=== PATIENT | female | born 1955 | race Caucasian/White ===

== ENCOUNTER 2019-04-23 11:43 | Emergency (ER) | payer BC, OTHER ==
[~2019-04-23] VITALS: Ht 167.7 cm; Wt 66.6 kg
[2019-04-23 12:14] LABS: BASOPHILS % (AUTO) 1 % (0-10); EOSINOPHILS % (AUTO) 3 % (0-10); HEMATOCRIT 39 % (35-52); HEMOGLOBIN 12.1 G/DL (11.5-16.0); LYMPHOCYTES # (AUTO) 3.1 X 10^3 (1.0-4.0); LYMPHOCYTES % (AUTO) 24 % (12-44); MEAN CORPUSCULAR HEMOGLOBIN 21 PG (25-34); MEAN CORPUSCULAR HGB CONC 31 G/DL (32-36); MEAN CORPUSCULAR VOLUME 69 FL (80-99); MEAN PLATELET VOLUME 10.1 FL (7.4-10.4); MONOCYTES % (AUTO) 7 % (0-12); NEUTROPHILS # (AUTO) 8.6 X 10^3 (1.8-7.8); NEUTROPHILS % (AUTO) 66 % (42-75); PLATELET COUNT 363 10^3/uL (130-400); RED CELL DISTRIBUTION WIDTH 14.6 % (10.0-14.5)
[2019-04-23 12:15] LABS: BASOPHILS # (AUTO) 0.1 10^3/uL (0.0-0.1); EOSINOPHILS # (AUTO) 0.3 10^3/uL (0.0-0.3); MONOCYTES # (AUTO) 0.9 X 10^3 (0.0-1.0)
[2019-04-23 12:17] LABS: PROTHROMBIN TIME PATIENT 13.5 SEC (12.2-14.7)
[2019-04-23 12:25] LABS: ALANINE AMINOTRANSFERASE 17 U/L (0-55); ALBUMIN 3.9 GM/DL (3.2-4.5); ALKALINE PHOSPHATASE 64 U/L (40-136); BILIRUBIN,TOTAL 0.4 MG/DL (0.1-1.0); BUN/CREATININE RATIO 15; CALCIUM 8.9 MG/DL (8.5-10.1); CARBON DIOXIDE 22 MMOL/L (21-32); CHLORIDE 101 MMOL/L (98-107); CREATININE SERUM 0.71 MG/DL (0.60-1.30); GFR ESTIMATED > 60; GLUCOSE 121 MG/DL (70-105); LIPASE 19 U/L (8-78); POTASSIUM 4.7 MMOL/L (3.6-5.0); SODIUM 137 MMOL/L (135-145); TOTAL PROTEIN 6.8 GM/DL (6.4-8.2)
[2019-04-23 13:13] LABS: BACTERIA,URINE FEW /HPF; BILIRUBIN,URINE NEGATIVE (NEGATIVE); CLARITY,URINE CLEAR; COLOR,URINE YELLOW; GLUCOSE, URINE (UA) NEGATIVE (NEGATIVE); KETONES,URINE NEGATIVE (NEGATIVE); LEUKOCYTE ESTERASE ,URINE TRACE (NEGATIVE); NITRITE,URINE NEGATIVE (NEGATIVE); PROTEIN,URINE NEGATIVE (NEGATIVE); RBC,URINE 0-2 /HPF; SQUAMOUS EPITHELIAL CELL,UR 25-50 /HPF
[2019-04-23] MEDS ORDERED: KETOROLAC 30 MG/ML VIAL IVP STA (13:24)
--- NOTE | 2019-04-23 13:30 | ED Abdominal Pain ---
General Chief Complaint: Abdominal/GI Problems Stated Complaint: VOMITING; DIARRHEA Nursing Triage Note: Patient c/o vomiting, diarrhea with blood clots in her stool for the past 2 days. She reports that she went to [employer] a tasting event and got sick shortly after that. She has been unable to eat or drink anything for the past 2 days and continues to have diarrhea. Sepsis Screen: No Definite Risk Source of Information: Patient History of Present Illness Date Seen by Provider: Apr 23, 2019 Time Seen by Provider: 13:04 Initial Comments 63-year-old female presenting with left flank pain that has been going on since Monday. She had gone to an event called [employer] Monday night. She started having vomiting and diarrhea when she got home from that event. She has had left flank pain and noticed that she was passing clots of blood when she goes to the bathroom. She says that she has not really eaten since this weekend because of being afraid of causing more pain. She has not had any vomiting since Monday. She has just tried crackers and Activia yogurt. She did try some cereal today. Right before she passes the blood clots she did SEVERE cramping pain on the left lower quadrant that radiates across her belly. She denies having symptoms like this before. She has had a colonoscopy approximately 5 years ago that was all clear. She states that her mother had polyps previously. Allergies and Home Medications Allergies Coded Allergies: No Known Drug Allergies (Unverified , 04/23/19) Home Medications Dicyclomine HCl 20 Mg Tablet, 20 MG PO Q6H PRN for ABDOMINAL PAIN Prescribed by: RUFINA PEDRAZA on 04/23/19 1503 Levofloxacin 500 Mg Tablet, 500 MG PO DAILY Prescribed by: RUFINA PEDRAZA on 04/23/19 1503 Patient Home Medication List Home Medication List Reviewed: Yes Review of Systems Review of Systems Constitutional: No chills, No fever; malaise EENTM: No Symptoms Reported Respiratory: No Symptoms Reported Cardiovascular: No Symptoms Reported Gastrointestinal: See HPI Genitourinary: No Symptoms Reported Musculoskeletal: no symptoms reported Skin: no symptoms reported Psychiatric/Neurological: No Symptoms Reported Endocrine: No Symptoms Reported Past Sitigad-Sgcyoi-Myzqkg Hx Past Med/Social Hx: Reviewed Nursing Past Med/Soc Hx Patient Social History Alcohol Use: Occasionally Uses Recreational Drug Use: No Smoking Status: Never a Smoker 2nd Hand Smoke Exposure: No Recent Foreign Travel: No Contact w/Someone Who Travel: No Recent Infectious Disease Expo: No Recent Hopitalizations: No Physical Abuse: No Sexual Abuse: No Mistreated: No Fear: No Seasonal Allergies Seasonal Allergies: No Past Medical History Surgeries: Yes Tubal Ligation Respiratory: No Cardiac: Yes Hypertension Neurological: No 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 oz. kg; 23.00 BMI Method: General Appearance: WD/WN, no apparent distress HEENT: PERRL/EOMI, pharynx normal Neck: non-tender, full range of motion, supple, normal inspection Respiratory: chest non-tender, lungs clear, normal breath sounds Cardiovascular: normal peripheral pulses, regular rate, rhythm Gastrointestinal: normal bowel sounds, soft, no pulsatile mass, guarding (left lower quadrant); No rebound; tenderness (left lower quadrant) Extremities: normal range of motion, non-tender, normal capillary refill Neurologic/Psychiatric: alert, normal mood/affect, oriented x 3 Skin: normal color, warm/dry Progress/Results/Core Measures Results/Orders Lab Results Laboratory Tests Test 04/23/19 11:55 04/23/19 13:00 Range/Units White Blood Count 13.0 H 4.3-11.0 10^3/uL Red Blood Count 5.66 4.35-5.85 10^6/uL Hemoglobin 12.1 11.5-16.0 G/DL Hematocrit 39 35-52 % Mean Corpuscular Volume 69 L 80-99 FL Mean Corpuscular Hemoglobin 21 L 25-34 PG Mean Corpuscular Hemoglobin Concent 31 L 32-36 G/DL Red Cell Distribution Width 14.6 H 10.0-14.5 % Platelet Count 363 130-400 10^3/uL Mean Platelet Volume 10.1 7.4-10.4 FL Neutrophils (%) (Auto) 66 42-75 % Lymphocytes (%) (Auto) 24 12-44 % Monocytes (%) (Auto) 7 0-12 % Eosinophils (%) (Auto) 3 0-10 % Basophils (%) (Auto) 1 0-10 % Neutrophils # (Auto) 8.6 H 1.8-7.8 X 10^3 Lymphocytes # (Auto) 3.1 1.0-4.0 X 10^3 Monocytes # (Auto) 0.9 0.0-1.0 X 10^3 Eosinophils # (Auto) 0.3 0.0-0.3 10^3/uL Basophils # (Auto) 0.1 0.0-0.1 10^3/uL Prothrombin Time 13.5 12.2-14.7 SEC INR Comment 1.0 0.8-1.4 Activated Partial Thromboplast Time 28 24-35 SEC Sodium Level 137 135-145 MMOL/L Potassium Level 4.7 3.6-5.0 MMOL/L Chloride Level 101 98-107 MMOL/L Carbon Dioxide Level 22 21-32 MMOL/L Anion Gap 14 5-14 MMOL/L Blood Urea Nitrogen 11 7-18 MG/DL Creatinine 0.71 0.60-1.30 MG/DL Estimat Glomerular Filtration Rate > 60 BUN/Creatinine Ratio 15 Glucose Level 121 H 70-105 MG/DL Calcium Level 8.9 8.5-10.1 MG/DL Corrected Calcium 9.0 8.5-10.1 MG/DL Total Bilirubin 0.4 0.1-1.0 MG/DL Aspartate Amino Transf (AST/SGOT) 24 5-34 U/L Alanine Aminotransferase (ALT/SGPT) 17 0-55 U/L Alkaline Phosphatase 64 40-136 U/L Total Protein 6.8 6.4-8.2 GM/DL Albumin 3.9 3.2-4.5 GM/DL Lipase 19 8-78 U/L Urine Color YELLOW Urine Clarity CLEAR Urine pH 6.0 5-9 Urine Specific [place] <1.005 1.016-1.022 Urine Protein NEGATIVE NEGATIVE Urine Glucose (UA) NEGATIVE NEGATIVE Urine Ketones NEGATIVE NEGATIVE Urine Nitrite NEGATIVE NEGATIVE Urine Bilirubin NEGATIVE NEGATIVE Urine Urobilinogen 0.2 NORMAL MG/DL Urine Leukocyte Esterase TRACE NEGATIVE Urine RBC (Auto) 2+ H NEGATIVE Urine RBC 0-2 /HPF Urine WBC 2-5 /HPF Urine Squamous Epithelial Cells 25-50 H /HPF Urine Crystals NONE /LPF Urine Bacteria FEW H /HPF Urine Casts NONE /LPF Urine Mucus NEGATIVE /LPF Urine Culture Indicated NO My Orders Orders - RUFINA PEDRAZA MD Comprehensive Metabolic Panel (04/23/19 12:01) Lipase (04/23/19 12:01) Ua Culture If Indicated (04/23/19 12:01) Ed Iv/Invasive Line Start (04/23/19 12:01) Cbc With Automated Diff (04/23/19 12:01) Protime With Inr (04/23/19 12:01) Partial Thromboplastin Time (04/23/19 12:01) Ketorolac Injection (Toradol Injection) (04/23/19 13:24) Ct Abdomen/Pelvis W (04/23/19 13:24) Iohexol Injection (Omnipaque 350 Mg/Ml 1 (04/23/19 13:45) Received Contrast (Hold Metformin- Contr (04/23/19 13:45) Sodium Chloride Flush (Catheter Flush Sy (04/23/19 13:45) Ns (Ivpb) (Sodium Chloride 0.9% Ivpb Bag (04/23/19 13:45) Levofloxacin 500 Mg/100 Ml Iv (Levaquin (04/23/19 14:28) Medications Given in ED Current Medications Medications Dose Ordered Sig/[place] Route Start Time Stop Time Status Last Admin Dose Admin Iohexol 100 ml ONCE ONCE IV 04/23/19 13:45 04/23/19 13:46 DC 04/23/19 14:02 100 ML Sodium Chloride 10 ml NEEDED PRN IV 04/23/19 13:45 04/23/19 15:54 DC 04/23/19 14:02 10 ML Sodium Chloride 100 ml ONCE ONCE IV 04/23/19 13:45 04/23/19 13:46 DC 04/23/19 14:02 80 ML Vital Signs/I&O 04/23/19 04/23/19 11:50 15:54 Temp 36.9 37.1 Pulse 62 62 Resp 16 16 B/P (MAP) 163/71 (101) 138/59 (101) Pulse Ox 99 100 O2 Delivery Room Air Blood Pressure Mean: 101 POS Progress Progress Note #1: Progress Note Labs show mild elevation of her white blood cell count to 13,000. She has normal chemistry other than a mild elevation of her glucose. With her pain in the left lower quadrant we will obtain a CT scan to evaluate for diverticulitis versus colitis versus other pathology that might be causing her symptoms. Try toradol for pain. Progress Note #2: Progress Note Patient reports improvement with treatment here in the ED. Her CT scan showed evidence of colitis with some diverticular disease. The radiologist's report stated that it appeared more consistent with colitis and diverticulitis. Will treat with Levaquin for the colitis picture. Counseled on follow-up and return precautions. Advised that she likely will still need a colonoscopy to further evaluate her colon in the diverticular disease once a inflammatory process of infection has calmed down. Based on recommendations from up-to-date for infectious colitis Will treat with a 5 day course of Levaquin. I'll give a IV dose of Levaquin here to kick start her treatment process. Diagnostic Imaging Diagonstic Imaging: CT Plain Films/CT/US/NM/MRI: abdomen, pelvis Comments NAME: [facility] REC#: [id number] PT STATUS: REG ER : 1955 PHYSICIAN: RUFINA PEDRAZA MD ADMIT DATE: 04/23/19/ER FS Draft POSDate of Exam:04/23/19 CT ABDOMEN/PELVIS W PROCEDURE: CT abdomen and pelvis with contrast. TECHNIQUE: Multiple contiguous axial images were obtained through the abdomen and pelvis after administration of intravenous contrast. Auto Exposure Controls were utilized during the CT exam to meet ALARA standards for radiation dose reduction. INDICATION: Abdominal pain and vomiting for two days. COMPARISON: No prior examinations are available for comparison. FINDINGS: The heart size is normal. The lung bases are clear. The liver is normal in size. There is a cyst in the right lobe of the liver. There is no biliary ductal dilatation. The gallbladder is normal. Spleen is normal. Pancreas and adrenal glands are unremarkable. Kidneys are normal in appearance. There is diffuse mucosal thickening throughout the descending colon extending to the upper sigmoid colon. There is diverticular disease. There is a trace amount of free fluid in the left paracolic gutter. There is an enlarged fibroid uterus. Bladder is normal. There are mild degenerative changes in the spine. IMPRESSION: Diffuse mucosal thickening throughout the descending colon with surrounding inflammatory change and trace free fluid in the left paracolic gutter. While there is a background of diverticular disease, this most likely reflects colitis, although an atypical diverticulitis is also consideration. The etiology of the colitis is most likely infectious, although inflammatory and/or ischemic colitis are also considerations. There is no evidence of abscess or bruce perforation. Enlarged fibroid uterus. Trace amount of free pelvic fluid. Benign hepatic cyst. Dictated on workstation # [id number] Dict: 04/23/19 1417 Trans: 04/23/[address] [facility] [id number] Interpreted by: FADY BISHOP MD Electronically signed by: Departure Impression Primary Impression: Colitis presumed to be due to infection Additional Impression: Diverticulitis of sigmoid colon Disposition: HOME, SELF-CARE Condition: Stable Departure-Patient Inst. Decision time for Depature: 15:00 Referrals: IZZY JIANG DO (PCP/Family) Primary Care Physician Patient Instructions: Colitis (DC) Add. Discharge Instructions: Take antibiotics until gone. Follow a liquid diet for 24 hours then advance to bland then regular diet as you tolerate it. Use the Bentyl (Dicyclomine) to help with cramping and abdominal pain. Return or seek medical care for severe pain that worsens, fever over 101 F or uncontrolled vomiting. All discharge instructions reviewed with patient and/or family. Voiced unders tanding. Scripts Dicyclomine HCl (Dicyclomine HCl) 20 Mg Tablet 20 MG PO Q6H PRN for ABDOMINAL PAIN for 5 Days, #20 TAB 0 Refills Prov: RUFINA PEDRAZA MD 04/23/19 Levofloxacin (Levofloxacin) 500 Mg Tablet 500 MG PO DAILY for Colitis for 5 Days, #5 TAB 0 Refills Prov: RUFINA PEDRAZA MD 04/23/19 RUFINA PEDRAZA MD Apr 23, 2019 13:30 POS
[2019-04-23] MEDS ORDERED: NS 100 ML (IVPB) BAG IV ONE (13:45)
[2019-04-23] MEDS ORDERED: IOHEXOL 350 MG/ML 100 ML (OMNIPAQUE 350) VIAL IV ONE (13:45)
[2019-04-23] MEDS ORDERED: CATHETER FLUSH 10 ML SYR IV PRN (13:45)
[2019-04-23] MEDS ORDERED: HOLD METFORMIN - RECEIVED CONTRAST 20 ML VIAL IV SCH (13:45)
--- NOTE | 2019-04-23 14:24 | Diagnostic Imaging Report ---
PROCEDURE: CT abdomen and pelvis with contrast. TECHNIQUE: Multiple contiguous axial images were obtained through the abdomen and pelvis after administration of intravenous contrast. Auto Exposure Controls were utilized during the CT exam to meet ALARA standards for radiation dose reduction. INDICATION: Abdominal pain and vomiting for two days. COMPARISON: No prior examinations are available for comparison. FINDINGS: The heart size is normal. The lung bases are clear. The liver is normal in size. There is a cyst in the right lobe of the liver. There is no biliary ductal dilatation. The gallbladder is normal. Spleen is normal. Pancreas and adrenal glands are unremarkable. Kidneys are normal in appearance. There is diffuse mucosal thickening throughout the descending colon extending to the upper sigmoid colon. There is diverticular disease. There is a trace amount of free fluid in the left paracolic gutter. There is an enlarged fibroid uterus. Bladder is normal. There are mild degenerative changes in the spine. IMPRESSION: Diffuse mucosal thickening throughout the descending colon with surrounding inflammatory change and trace free fluid in the left paracolic gutter. While there is a background of diverticular disease, this most likely reflects colitis, although an atypical diverticulitis is also consideration. The etiology of the colitis is most likely infectious, although inflammatory and/or ischemic colitis are also considerations. There is no evidence of abscess or bruce perforation. Enlarged fibroid uterus. Trace amount of free pelvic fluid. Benign hepatic cyst. Dictated by: Dictated on workstation # [id number]
[2019-04-23] MEDS ORDERED: LEVOFLOXACIN 500 MG/100 ML (LEVAQUIN) BAG IV STA (14:28)
[2019-04-23] MEDS ORDERED: DICY20TA10 PO (15:03)
[2019-04-23] MEDS ORDERED: LEVO500T80 PO (15:03)
[2019-04-23 15:54] VITALS: BP 138/59
== END 2019-04-23 15:54 | disposition home or self-care (01) ==
LOC: ER FS 11:45
DX: K52.9 Noninfective gastroenteritis and colitis, unspecified (principal); K57.32 Diverticulitis of large intestine without perforation or abscess without bleeding; I10 Essential (primary) hypertension; Z98.51 Tubal ligation status
CPT/HCPCS: 36415; 74177; 80053; 81000; 83690; 85025; 85610; 85730